=== PATIENT | female | born 1985 | race Caucasian/White ===

== ENCOUNTER 2016-12-28 05:41 | Emergency (ER) | payer OTHER ==
[~2016-12-28] VITALS: Ht 154.9 cm; Wt 68.0 kg
[2016-12-28 05:58] VITALS: BP 127/77
[2016-12-28] MEDS ORDERED: PRENTAB56 PO (06:00)
[2016-12-28] MEDS ORDERED: MACR100C43 PO (07:10)
[2016-12-28] MEDS ORDERED: DIFL150T PO (07:14)
[2016-12-28] MEDS ORDERED: NITROFURANTOIN (MACROBID) 100 MG CAP PO ONE (07:45)
== END 2016-12-28 07:49 | disposition home or self-care (01) ==
LOC: M ED 05:41
DX: N39.0 Urinary tract infection, site not specified (principal); R11.2 Nausea with vomiting, unspecified